=== PATIENT | male | born 1985 | race African-American/Black ===

== ENCOUNTER 2017-11-06 06:21 | Emergency (ER) | payer MEDICAID ==
[~2017-11-06] VITALS: Ht 172.7 cm; Wt 68.0 kg
[~2017-11-06 06:21] MED LIST: NO MEDS
[2017-11-06] MEDS ORDERED: LORAZEPAM 2MG/ML CPJ IV STA (08:10)
[2017-11-06] MEDS ORDERED: HALOPERIDOL LACTATE 5MG/ML VIAL IM ONE (08:15)
[2017-11-06] MEDS: DIPHENHYDRAMINE 50MG/ML VIAL IM PRN ×2 (08:28→14:17)
[2017-11-06 09:15] LABS: BASOPHILS % 1.1 % (0.0-2.0); EOSINOPHILS % 4.4 % (0.0-5.0); HEMATOCRIT. 42.4 % (42.0-52.0); HEMOGLOBIN. 14.7 g/dL (14.0-18.0); LYMPHOCYTES % 42.6 % (20.0-50.0); MEAN CORPUSCULAR HEMOGLOBIN 35.2 pg (28.0-32.0); MEAN CORPUSCULAR VOLUME 101.7 fL (80.0-94.0); MEAN PLATELET VOLUME 8.3 fl (7.4-10.4); NEUTROPHILS % 39.9 % (40.0-76.0); PLATELET 299 x1000/uL (130-400); RED BLOOD CELL COUNT 4.17 mill/uL (4.7-6.1); RED CELL DISTRIBUTION WIDTH 12.8 % (11.6-14.6)
[2017-11-06 09:20] LABS: CHLORIDE 107 mEq/L (98-107)
[2017-11-06 09:30] LABS: ETHANOL BLOOD 199 mg/dL
[2017-11-06] MEDS ORDERED: SODIUM CHLORIDE 0.9% 1,000 ML IV ONE (09:30)
[2017-11-06 09:32] LABS: CLARITY URINE CLEAR (CLEAR); COLOR URINE YELLOW (YELLOW); KETONES URINE NEGATIVE (NEGATIVE); LEUKOCYTE ESTERASE URINE NEGATIVE (NEGATIVE); NITRITE URINE NEGATIVE (NEGATIVE); OCCULT BLOOD URINE NEGATIVE (NEGATIVE); PH URINE 8.5 (4.5-8.0); PROTEIN URINE NEGATIVE (NEGATIVE); SPECIFIC GRAVITY URINE 1.009 (1.005-1.030)
[2017-11-06 09:41] LABS: *COCAINE SCREEN URINE PRESUMTIVE POSITIVE (NEGATIVE); METHADONE URINE SCREEN NEGATIVE (NEGATIVE); OPIATES URINE SCREEN NEGATIVE (NEGATIVE); PHENCYCLIDINE URINE SCREEN NEGATIVE (NEGATIVE)
[2017-11-06 09:42] LABS: CANNABINOID URINE SCREEN NEGATIVE (NEGATIVE)
[2017-11-06 09:45] LABS: *AMPHETAMINES SCREEN URINE NEGATIVE (NEGATIVE); *BENZODIAZEPINES SCREEN URINE NEGATIVE (NEGATIVE)
[2017-11-06 09:46] LABS: *BARBITURATES SCREEN URINE NEGATIVE (NEGATIVE)
[2017-11-06] MEDS ORDERED: ZIPRASIDONE MESYLATE 20MG/VIAL IM ONE (15:15)
[2017-11-07 17:45] VITALS: BP 134/74
== END 2017-11-07 18:24 | disposition home or self-care (01) ==
LOC: ER 06:21
DX: F10.229 Alcohol dependence with intoxication, unspecified (principal); F14.10 Cocaine abuse, uncomplicated; R45.851 Suicidal ideations; F17.200 Nicotine dependence, unspecified, uncomplicated; R56.9 Unspecified convulsions; Z88.9 Allergy status to unspecified drugs, medicaments and biological substances; Y90.6 Blood alcohol level of 120-199 mg/100 ml
CPT/HCPCS: 36415; 80053; 80305; 80307; 80329; 81003; 85025; 96372; 96374; 99285; G0482; J1200; J1630; J2060; J7030; Z7610

== ENCOUNTER 2018-12-04 14:23 | Emergency (ER) | payer MEDICAID ==
[~2018-12-04] VITALS: Ht 172.7 cm; Wt 70.0 kg
[2018-12-04] MEDS ORDERED: HYDROCODONE/ACETAMINOPHEN 10/325MG TABLET PO ONE ×2 (15:30→21:15)
[2018-12-04 23:08] VITALS: BP 125/71
== END 2018-12-05 00:19 | disposition short-term general hospital (02) ==
LOC: ER 14:23 → CANBEDREQ 18:07 → ER 12-05 00:19
DX: S42.021A Displaced fracture of shaft of right clavicle, initial encounter for closed fracture (principal); F14.10 Cocaine abuse, uncomplicated; V23.4XXA Motorcycle driver injured in collision with car, pick-up truck or van in traffic accident, initial encounter; Y93.89 Activity, other specified; Y92.488 Other paved roadways as the place of occurrence of the external cause
CPT/HCPCS: 71045; 73030; 99285